=== PATIENT | female | born 1940 | race African-American/Black ===

== ENCOUNTER 2018-10-02 02:35 | Inpatient (IN) | payer MEDICARE, MEDICAID ==
[~2018-10-02] VITALS: Ht 162.6 cm; Wt 71.2 kg
[2018-10-02] MEDS ORDERED: ALBUTEROL (0.083%) 2.5MG/3ML NEB HHN STA (02:50)
[2018-10-02] MEDS ORDERED: METHYLPREDNISOLONE SOD SUCC 125 MG/2 ML VIAL IV STA (02:50)
[2018-10-02] MEDS ORDERED: IPRATROPIUM BROMIDE (0.02%) 0.5MG/2.5ML NEB HHN STA (02:50)
[2018-10-02 04:20] LABS: BASOPHILS % 0.9 % (0.0-2.0); EOSINOPHILS % 1.8 % (0.0-5.0); HEMATOCRIT. 37.4 % (36.0-48.0); LYMPHOCYTES % 8.2 % (20.0-50.0); MEAN CORPUSCULAR HEMOGLOBIN 28.9 pg (28.0-32.0); MEAN CORPUSCULAR VOLUME 90.3 fL (81.0-99.0); MEAN PLATELET VOLUME 9.3 fl (7.4-10.4); MONOCYTES % 5.3 % (2.0-8.0); NEUTROPHILS % 83.8 % (40.0-76.0); PLATELET 285 x1000/uL (130-400); RED BLOOD CELL COUNT 4.14 mill/uL (4.2-5.4); RED CELL DISTRIBUTION WIDTH 16.4 % (11.6-14.6)
[2018-10-02 04:24] LABS: CLARITY URINE CLEAR (CLEAR); COLOR URINE YELLOW (YELLOW); KETONES URINE NEGATIVE (NEGATIVE); LEUKOCYTE ESTERASE URINE NEGATIVE (NEGATIVE); NITRITE URINE NEGATIVE (NEGATIVE); OCCULT BLOOD URINE TRACE (NEGATIVE); PH URINE 7.5 (4.5-8.0); PROTEIN URINE 3+ (NEGATIVE); SPECIFIC GRAVITY URINE 1.009 (1.005-1.030); UROBILINOGEN URINE 0.2 E.U./dL (0.2-1.0)
[2018-10-02 04:26] LABS: CHLORIDE 108 mEq/L (98-107)
[2018-10-02 04:30] LABS: PARTIAL THROMBOPLASTIN TIME 24.3 sec (23.4-31.0); PROTHROMBIN TIME 10.2 sec (9.1-11.1)
[2018-10-02] MEDS ORDERED: ASPIRIN 325MG EC TABLET PO NR (05:15)
[2018-10-02] MEDS ORDERED: FUROSEMIDE 40MG/4ML VIAL IVP NR ×2 (05:15→17:15)
[2018-10-02] MEDS ORDERED: CLONIDINE 0.2MG TABLET PO PRN (07:15)
[2018-10-02] MEDS ORDERED: CLONIDINE 0.1MG TABLET PO PRN (08:45)
[2018-10-02] MEDS ORDERED: ONDANSETRON HCL 4MG/2ML INJ IV PRN (08:45)
[2018-10-02] MEDS ORDERED: IPRATROPIUM/ALBUTEROL 0.5-3(2.5)MG/3ML NEB HHN PRN (08:45)
[2018-10-02] MEDS: AMLODIPINE 5MG TABLET PO SCH ×2 (09:00→12:09)
[2018-10-02] MEDS: CARVEDILOL 12.5MG TABLET PO SCH ×2 (09:00→12:09)
[2018-10-02] MEDS: ASPIRIN 81MG TABLET PO SCH (09:00)
[2018-10-02] MEDS: FUROSEMIDE 40MG/4ML VIAL IVP SCH ×2 (09:00→17:00)
[2018-10-02] MEDS: LOSARTAN POTASSIUM 50 MG TABLET PO SCH ×2 (09:00→12:09)
[2018-10-02] MEDS ORDERED: TRAMADOL 50MG TABLET PO PRN (10:15)
[2018-10-02] MEDS: ACETAMINOPHEN 325MG TABLET PO PRN (12:10)
[2018-10-02 12:15] LABS: T4 FREE 0.85 ng/dL (0.76-1.46)
[2018-10-02 14:41] LABS: OPIATES URINE SCREEN NEGATIVE (NEGATIVE)
[2018-10-02 14:42] LABS: *AMPHETAMINES SCREEN URINE NEGATIVE (NEGATIVE); *BARBITURATES SCREEN URINE NEGATIVE (NEGATIVE); *BENZODIAZEPINES SCREEN URINE NEGATIVE (NEGATIVE); *COCAINE SCREEN URINE NEGATIVE (NEGATIVE); CANNABINOID URINE SCREEN NEGATIVE (NEGATIVE); METHADONE URINE SCREEN NEGATIVE (NEGATIVE); PHENCYCLIDINE URINE SCREEN NEGATIVE (NEGATIVE)
[2018-10-02] MEDS: AZITHROMYCIN 500 MG TABLET PO SCH (15:13)
[2018-10-02 22:45] VITALS: BP 149/57
[2018-10-02 23:15] LABS: CREATINE KINASE MB FRACTION 3.1 ng/mL (0.5-3.6)
[2018-10-03] MEDS: ENOXAPARIN 30MG/0.3ML SYR SUBCUT SCH ×2 (02:14→22:15)
[2018-10-03 04:00] VITALS: BP 136/60
[2018-10-03] MEDS: ACETAMINOPHEN 325MG TABLET PO PRN (05:33)
[2018-10-03] MEDS ORDERED: FUROSEMIDE 40MG/4ML VIAL IVP SCH (07:15)
[2018-10-03 07:49] LABS: HEMATOCRIT. 32.2 % (36.0-48.0); HEMOGLOBIN. 10.7 g/dL (12.0-16.0); MEAN CORPUSCULAR HEMOGLOBIN 29.4 pg (28.0-32.0); MEAN CORPUSCULAR VOLUME 88.5 fL (81.0-99.0); MEAN PLATELET VOLUME 9.3 fl (7.4-10.4); PLATELET 259 x1000/uL (130-400); RED BLOOD CELL COUNT 3.63 mill/uL (4.2-5.4); RED CELL DISTRIBUTION WIDTH 16.3 % (11.6-14.6)
[2018-10-03 08:00] VITALS: BP 142/62
[2018-10-03 08:17] LABS: CREATINE KINASE MB FRACTION 3.1 ng/mL (0.5-3.6)
[2018-10-03] MEDS ORDERED: REGADENOSON 0.4 MG/5 ML IV NR (08:45)
[2018-10-03] MEDS: AMLODIPINE 5MG TABLET PO SCH ×2 (08:57→22:15)
[2018-10-03] MEDS: AZITHROMYCIN 500 MG TABLET PO SCH (08:57)
[2018-10-03] MEDS: ASPIRIN 81MG TABLET PO SCH (08:58)
[2018-10-03] MEDS: CARVEDILOL 12.5MG TABLET PO SCH ×2 (08:58→22:15)
[2018-10-03] MEDS: LOSARTAN POTASSIUM 25 MG TABLET PO SCH ×2 (10:19→22:15)
[2018-10-03 10:22] LABS: PLATELET ESTIMATE NORMAL
[2018-10-03 12:00] VITALS: BP 138/70
[2018-10-03] MEDS ORDERED: REGADENOSON 0.4 MG/5 ML IV ONE (12:59)
[2018-10-03 14:41] VITALS: BP_SYST 140; BP_SYST 154; BP_DIAS 60; BP_DIAS 86
[2018-10-03 16:00] VITALS: BP 142/52
[2018-10-03 20:00] VITALS: BP 158/64
[2018-10-03] MEDS ORDERED: ATORVASTATIN CALCIUM 40MG TABLET PO SCH (21:00)
[2018-10-04] VITALS: BP 137/72
[2018-10-04 04:00] VITALS: BP 134/58
[2018-10-04 08:00] VITALS: BP 154/86
[2018-10-04] MEDS: CARVEDILOL 12.5MG TABLET PO SCH (08:56)
[2018-10-04] MEDS: ASPIRIN 81MG TABLET PO SCH (08:56)
[2018-10-04] MEDS: LOSARTAN POTASSIUM 25 MG TABLET PO SCH (08:56)
[2018-10-04] MEDS: AMLODIPINE 5MG TABLET PO SCH (08:57)
[2018-10-04] MEDS: AZITHROMYCIN 500 MG TABLET PO SCH (08:57)
[2018-10-04] MEDS ORDERED: FUROSEMIDE 40MG/4ML VIAL IVP SCH (09:00)
== END 2018-10-04 11:09 | disposition home or self-care (01) | DRG 682 ==
LOC: ER 02:35 → 7WST 06:15 → EDBEDREQ 06:16 → EDBEDREQSVC 06:16 → EDBEDREQTM 06:16 → EDBEDREQSVC 19:31 → ENRESERV 20:10 → CANRESERV 20:10 → ENRESERV 20:14
PROVIDERS: ADMIT Internal Medicine; ATTEND Internal Medicine
PROC: 5A09357 Assistance with Respiratory Ventilation, Less than 24 Consecutive Hours, Continuous Positive Airway Pressure (ICD-10-PCS; principal; 2018-10-02)
DX: N17.0 Acute kidney failure with tubular necrosis (principal); J18.9 Pneumonia, unspecified organism; I13.0 Hypertensive heart and chronic kidney disease with heart failure and stage 1 through stage 4 chronic kidney disease, or unspecified chronic kidney disease; I50.40 Unspecified combined systolic (congestive) and diastolic (congestive) heart failure; M62.82 Rhabdomyolysis; I42.9 Cardiomyopathy, unspecified; I16.0 Hypertensive urgency; N18.9 Chronic kidney disease, unspecified; E78.5 Hyperlipidemia, unspecified; E87.8 Other disorders of electrolyte and fluid balance, not elsewhere classified; R09.02 Hypoxemia; R74.8 Abnormal levels of other serum enzymes; Z87.891 Personal history of nicotine dependence
CPT/HCPCS: 36415; 71045; 78452; 80048; 80061; 80305; 82550; 82553; 83036; 83605; 83880; 84439; 84443; 84484; 85379; 93005; 93017; 93306; 93970; 94640; 94660; 96365; 96375; 99285; A9500; J1650; J1940; J2405; J2785; J2930